=== PATIENT | male | born 1970 ===

== ENCOUNTER 2020-08-18 09:04 | Emergency (ER) | payer OTHER ==
[~2020-08-18] VITALS: Ht 180.3 cm; Wt 83.9 kg
[2020-08-18] MEDS ORDERED: NORFLEX100MG PO (13:51)
[2020-08-18] MEDS ORDERED: KETO10TA2 PO (13:51)
== END 2020-08-18 13:56 | disposition home or self-care (01) ==
LOC: ER 09:04
DX: M54.5 Low back pain (principal)